=== PATIENT | female | born 1945 | race Caucasian/White ===

== ENCOUNTER 2023-12-29 15:40 | Outpatient (CLI) | payer MEDICARE | END 2023-12-29 15:41 | disposition home or self-care (01) | LOC: BICRAD 15:40 | PROVIDERS: ATTEND Family Medicine | DX: M79.672 Pain in left foot (principal); M19.072 Primary osteoarthritis, left ankle and foot; M77.8 Other enthesopathies, not elsewhere classified; M25.872 Other specified joint disorders, left ankle and foot ==

== ENCOUNTER 2025-03-09 15:36 | Outpatient (CLI) | payer MEDICARE | END 2025-03-09 15:37 | disposition home or self-care (01) | LOC: SCSRAD 15:36 | PROVIDERS: ATTEND Family Medicine | DX: K59.00 Constipation, unspecified (principal) | CPT/HCPCS: 74018 ==